=== PATIENT | female | born 1990 | race African-American/Black ===

== ENCOUNTER 2019-11-12 18:48 | Emergency (ER) | payer SELFPAY ==
--- NOTE | ~2019-11-12 | XR_ITS ---
EXAMINATION: XR chest 1V portable INDICATION: Left chest pain TECHNIQUE: Portable AP chest at 1937 hours COMPARISON: None available FINDINGS: There are minimal airspace opacities of the left lung base. The cardiomediastinal silhouett e is normal. There is no pleural effusion or pneumothorax. IMPRESSION: 1. Minimal right basilar airspace opacity, consistent with atelectasis versus pneumonia. Reviewed, dictated and finalized at location A. IMPRESSION: 1. Minimal right basilar airspace opacity, consistent with atelectasis versus p neumonia.
[2019-11-12 18:54] VITALS: BP 156/100; PULSE 130; RESP 20; TEMP 36.7; O2SAT 98
--- NOTE | 2019-11-12 18:54 | ECG_ITS ---
Measurements Intervals [place] Rate: 144 P: 89 VA: 143 QRS: 63 QRSD: 82 T: 66 QT: 327 QTc: 506 Interpretive Statements SINUS TACHYCARDIA RSR' IN V1 OR V2, PROBABLY NORMAL VARIANT BORDERLINE T WAVE ABNORMALITY- ANT/INF LEADS BASELINE ARTIFACT- I, II, III, AVR, AVL, AVF, V4-V6 ABNORMAL ECG Electronically Signed On 11-13-2019 7:40:02 CDT by Merlin Durant D.O.
[2019-11-12 19:00] VITALS: PULSE 130
[2019-11-12] MEDS: ASPIRIN 81 MG CHEWABLE TABLET 324 MG PO (19:03)
[2019-11-12] MEDS: NITROGLYCERIN SL 0.4 MG TABLET SUBLINGUAL (19:08)
[2019-11-12] MEDS: LORAZEPAM INJ 2 MG/ML VIAL 0.5 MG IV PUSH (19:08)
[2019-11-12 19:12] LABS: Basophils Absolute Auto 0.02 K/mm3 (0.00-0.10); Basophils Percent Auto 0.3 % (0.0-1.0); Eosinophils Absolute Auto 0.07 K/mm3 (0.02-0.50); Eosinophils Percent Auto 1.1 % (1.0-6.0); Hematocrit 39.6 % (35.0-49.0); Hemoglobin 12.9 g/dL (12.0-15.0); Immature Granulocyte Absolute 0.01 K/mm3 (0.00-0.00); Immature Granulocyte Percent A 0.2 % (0.0-0.0); Lymphocytes Absolute Auto 2.57 K/mm3 (1.10-4.50); Lymphocytes Percent Auto 39.7 % (18.0-42.0); Mean Corpuscular HGB Conc 32.6 g/dL (32.0-36.0); Mean Corpuscular Hemoglobin 30.5 pg (27.0-31.0); Mean Corpuscular Volume 93.6 fL (78.0-102.0); Mean Platelet Volume 9.4 fl (9.2-11.8); Monocytes Absolute Auto 0.39 K/mm3 (0.10-0.90); Neutrophils Absolute Auto 3.4 K/mm3 (1.7-7.2); Neutrophils Percent Auto 52.7 % (50.0-70.0); Platelet Count Result 434 K/mm3 (150-420); Red Blood Count 4.23 M/mm3 (4.20-5.40); Red Cell Distribution Width 13.2 % (11.6-14.4); White Blood Count 6.5 K/mm3 (4.8-10.8)
--- NOTE | 2019-11-12 19:12 | ED.CHESTPAIN ---
HPI - Chest Pain General Chief Complaint: Chest Pain Stated Complaint: chest pain Source: patient History of Present Illness HPI narrative: Kristy is a 29F with a PMH of anxiety/panic and asthma that presented to the ED with chest pain that started 20 minutes prior. She was riding in a [employer] (moving from [facility] to [place], [place]) when she started having intermittent sharp stabbing pain in her chest. The pain shoots from her neck down her left arm and into her left leg. Cannot identify any aggravating or alleviating factors. No N/V, lightheadedness, or syncope but does admits anxiety and feels like her heart is racing. Related Data Home Medications Medication Instructions Recorded Confirmed Unable to Obtain Home Medications 11/12/19 11/12/19 Allergies Allergy/AdvReac Type Severity Reaction Status Date / Time sulfamethoxazole Allergy Unknown Verified 11/12/19 19:01 [From Bactrim] trimethoprim [From Bactrim] Allergy Unknown Verified 11/12/19 19:01 Review of Systems Constitutional: Comments: no fevers or chills Eyes: Comments: no additional complaints ENT: Reports system reviewed and no additional complaints, except as documented Cardiovascular: Cardiovascular: Reports as per HPI Respiratory: Respiratory: Reports as per HPI Comments: took her Symbicort and albuterol earlier today. does not feel like she is struggling to breathe now Gastrointestinal: Gastrointestinal: Reports no additional gastrointestinal complaints Genitourinary: Genitourinary: Reports no additional female genitourinary complaints Musculoskeletal: Musculoskeletal: Reports no additional musculoskeletal complaints Integumentary/Breasts: Skin/Breast: Reports system reviewed and no additional complaints, except as docu Neurologic: Comments: no additional neurologic planes Psychiatric: Comments: admits significant anxiety and panic Endocrine: Endocrine: Reports no additional endocrine complaints Hematologic/Lymphatic: Hematologic/Lymphatic: Reports no additional hematologic/lymphatic complaints Allergic/Immunologic: Allergic/Immunologic: Reports no additional allergic/immunologic complaints Exam Const: General: cooperative and healthy appearing Other: during episodes of pain has significant distress or she hyperventilates and rocks back and forth in bed HENMT: Other: normocephalic, atraumatic, moist mucous membranes Eyes: General: appearance normal, both eyes and all related structures Neck: Neck: normal visual inspection Chest: Chest palpation & inspection: normal inspection of the chest and normal palpation of entire chest wall Resp: Effort & Inspection: normal respiratory effort, able to speak in complete sentences, no audible wheezes and no cough Auscultation: clear to auscultation bilaterally Cardio: Jugular venous distension: no JVD Rate: tachycardic Rhythm: regular rhythm Heart sounds: S1 normal heart sound present, S2 normal heart sound present and no murmurs Peripheral pulses: Peripheral pulses 2+ throughout GI: Other: bowel sounds present, no tenderness to palpation, no pulsatile masses Back/Spine/Pelvis: Back: no CVA tenderness Skin: General skin exam: normal color and no rashes or lesions noted Neuro: General: oriented to person, oriented to place and oriented to time Psych: Appearance: grossly normal Mental Status: other ( pressured speech and noticeable anxiety) Course Course Emergency Course: Kristy was seen and evaluated. she was given 325 trouble aspirin, 0.4 nitroglycerin 0.5 mg of Ativan. Ordered EKG, chest x-ray and as below. EKG showed sinus tachycardia at a rate of [address] elevation or depression no ectopy, significant baseline artifact. After several minutes she had continued pain so a GI cocktail was given in case there is a GI pathology. Shortly after the GI cocktail was given she had resolution of her pain. further history revealed that pain started after she at
[2019-11-12 19:26] VITALS: PULSE 107
[2019-11-12 19:26] LABS: D Dimer 0.19 mg/L (0.19-0.50); INR 0.9; Prothrombin Time 9.7 Seconds (9.64-11.0)
[2019-11-12 19:29] LABS: Alanine Aminotransferase 33 U/L (14-59); Albumin Level 3.8 g/dL (3.4-5.0); Alkaline Phosphatase 62 U/L (46-116); Anion Gap 17.3 mmol/L (7-16); Aspartate Amino Transferase 16 U/L (15-37); Bilirubin,Total 0.1 mg/dL (0.00-1.00); Blood Urea Nitrogen 11 mg/dL (7-18); Calcium 9.2 mg/dL (8.5-10.1); Carbon Dioxide 23 mmol/L (21-32); Chloride 103 mmol/L (98-108); Estimated CRCL calculation 76 ml/min; Estimated Glomerular Filt Rate > 60; Glucose 144 mg/dL (70-99); Lipase 128 U/L (73-393); Osmolality Calculated 292 mOsm/kg (285-295); Potassium 3.3 mmol/L (3.5-5.1); Sodium 140 mmol/L (136-145); Total Protein 7.5 g/dL (6.4-8.2)
[2019-11-12 19:30] LABS: Urine Pregnancy Test Negative
[2019-11-12 19:31] LABS: Pregnancy On Board Control Positive
[2019-11-12 19:34] LABS: Troponin I < 0.02 ng/mL (0.00-0.056)
[2019-11-12 19:35] LABS: BNP < 5.0 pg/mL (0-100)
[2019-11-12 19:38] VITALS: BP 117/64; PULSE 98; RESP 18; O2SAT 96
[2019-11-12 19:40] LABS: Amphetamine Screen Urine Negative (Negative); Barbiturate Screen Urine Negative (Negative); Benzodiazepines Screen Urine Negative (Negative); Cannabinoid Screen Urine Positive (Negative); Cocaine Screen Urine Negative (Negative); Methadone Screen Urine Negative (Negative); Opiate Screen Urine Negative (Negative); Phencyclidine Screen Urine Negative (Negative)
--- NOTE | 2019-11-12 19:44 | PC.NURSE ---
Pt. resting, talking and laughing c family on phone. No distress noted. VSS, mon. shows NSR.
[2019-11-12 19:49] VITALS: BP 128/73; PULSE 100; RESP 18; TEMP 36.7; O2SAT 100
--- NOTE | 2019-11-12 20:00 | ECG_ITS ---
Measurements Intervals [place] Rate: 98 P: 53 WI: 150 QRS: 24 QRSD: 90 T: 12 QT: 344 QTc: 440 Interpretive Statements SINUS RHYTHM POSSIBLE LEFT ATRIAL ENLARGEMENT NONSPECIFIC T-WAVE ABNORMALITY- ANT/INF LEADS BORDERLINE ECG Electronically Signed On 11-13-2019 7:41:09 CDT by Merlin Durant D.O.
--- NOTE | 2019-11-12 20:12 | PC.NURSE ---
Pt. sleeping, easily awakened. VSS, pt. reports feeling better, discussed POC for d/c and f/u c FMD.
[2019-11-12 20:13] VITALS: BP 130/73; PULSE 100; RESP 18; TEMP 36.6; O2SAT 100
== END 2019-11-12 20:19 | disposition home or self-care (01) ==
PROVIDERS: Emergency Provider Family Medicine
DX: R07.9 Chest pain, unspecified (principal); K21.9 Gastro-esophageal reflux disease without esophagitis
CPT/HCPCS: 36415; 71045; 80053; 80307; 81025; 83690; 83880; 84484; 85025; 85380; 85610; 93005; 96374; 99284; A9270; J2060